=== PATIENT | male | born 1990 | race Caucasian/White ===

== ENCOUNTER 2018-02-15 18:41 | Emergency (ER) | payer MEDICAID ==
[~2018-02-15] VITALS: Ht 177.8 cm; Wt 75.0 kg
[2018-02-15 18:45] VITALS: BP 107/67
[2018-02-15] MEDS ORDERED: AMOX-580 PO (20:29)
== END 2018-02-15 20:39 | disposition home or self-care (01) ==
LOC: ER 18:42
DX: J32.9 Chronic sinusitis, unspecified (principal); F17.200 Nicotine dependence, unspecified, uncomplicated
CPT/HCPCS: 99283

== ENCOUNTER 2020-03-13 11:38 | Emergency (ER) | payer MEDICAID ==
[~2020-03-13] VITALS: Ht 177.8 cm; Wt 81.8 kg
[2020-03-13] MEDS ORDERED: mupirocin 2% ointment 22GM TP STA (11:59)
[2020-03-13] MEDS ORDERED: piperacillin/tazo 3.375gm/50ml 50 ML IV ONE (12:00)
[2020-03-13] MEDS ORDERED: TETanus/Pertussis (Acell)/Diphther VAC/PF (Tdap-Adult) 0.5ml syringe IMVAC ONE (12:00)
[2020-03-13] MEDS ORDERED: normal saline 1000ML IV soln IVB ONE (12:00)
[2020-03-13] MEDS ORDERED: naloxone 0.4 mg/ml inj IV ONE (12:10)
--- NOTE | 2020-03-13 12:30 | NUR ---
RADHA AT BEDSIDE TO CONDUCT INTERVIEW WITH PT.
[2020-03-13] MEDS ORDERED: AMOX-580 PO (13:28)
[2020-03-13 13:52] VITALS: BP 96/72
== END 2020-03-13 13:40 | disposition home or self-care (01) ==
LOC: ER 11:38
DX: S01.25XA Open bite of nose, initial encounter (principal); M95.0 Acquired deformity of nose; F11.10 Opioid abuse, uncomplicated; R04.0 Epistaxis; Z79.899 Other long term (current) drug therapy; Y04.1XXA Assault by human bite, initial encounter; Y93.89 Activity, other specified; Y92.89 Other specified places as the place of occurrence of the external cause; Y99.8 Other external cause status
CPT/HCPCS: 70450; 70486; 90471; 90715; 96365; 96375; 99285; J2310; J2543; J7030

== ENCOUNTER 2023-06-19 21:36 | Emergency (ER) | payer MEDICAID ==
[~2023-06-19] VITALS: Ht 180.3 cm; Wt 86.4 kg
[2023-06-20 00:12] VITALS: BP 97/63; PULSE 60; RESP 14; TEMP 98.7; O2SAT 95
== END 2023-06-20 00:14 ==
LOC: ER 21:37
DX: R07.89 Other chest pain (principal); R07.81 Pleurodynia
CPT/HCPCS: 71100; 93005; 99283